=== PATIENT | male | born 1960 | race African-American/Black ===

== ENCOUNTER → 2023-07-01 | Day surgery (SDC) | payer OTHER ==
[2023-06-29 15:01] VITALS: BMI 29.7
[~2023-07-01] MED LIST: BACITRACIN ZINC 15 GM TUBE TOPICAL OINTMENT ONE; BUPIVACAINE HCL/PF 0.25% (2.5MG/ML) 10 ML VIAL IJ ONE; BUPIVACAINE HCL/PF 0.25% (2.5MG/ML) 10 ML VIAL ONE
[2023-07-01 13:45] VITALS: BP 157/98; PULSE 76; RESP 20; TEMP 98
== END | disposition home or self-care (01) ==
LOC: JASU-SURG 04:34
PROVIDERS: ATTEND Urology
DX: Z53.8 Procedure and treatment not carried out for other reasons (principal)